=== PATIENT | male | born 1990 | race Caucasian/White ===

== ENCOUNTER 2020-02-26 12:44 | Outpatient (REF) | payer OTHER, SELFPAY | END 2020-02-26 12:45 | disposition home or self-care (01) | LOC: HO.LAB 12:44 | PROVIDERS: Visit Provider Internal Medicine | DX: Z20.828 Contact with and (suspected) exposure to other viral communicable diseases (principal) | CPT/HCPCS: C9803; U0003 ==

== ENCOUNTER 2020-07-17 12:27 | Outpatient (REF) | payer OTHER, SELFPAY ==
[2020-07-18 07:26] LABS: SARS COV2 PCR INHOUSE NEGATIVE (Negative)
== END 2020-07-17 12:28 | disposition home or self-care (01) ==
LOC: HO.LAB 12:27
PROVIDERS: Visit Provider Internal Medicine
DX: Z20.822 Contact with and (suspected) exposure to COVID-19 (principal)
CPT/HCPCS: C9803; U0003